=== PATIENT | female | born 1965 | race Hispanic/Latino ===

== ENCOUNTER 2020-01-11 18:37 | Emergency (ER) ==
[~2020-01-11] VITALS: Ht 167.6 cm; Wt 74.8 kg
--- NOTE | 2020-01-11 22:01 | NUR ---
PATIENT REPORTEDLY LEFT AMA, UNKNOWN IV STATUS, LIZA HOLLIS CALLED FOR IV STATUS FOLLOW UP, UNIT IN ROUTE, SPOKE TO [facility]PERATOR.
== END 2020-01-11 22:59 | disposition left against medical advice (07) ==
LOC: ER 18:37
DX: R53.1 Weakness (principal)